=== PATIENT | female | born 1990 | race Two or more races ===

== ENCOUNTER 2018-03-04 09:10 | Emergency (ER) | payer MEDICAID ==
[~2018-03-04] VITALS: Ht 160 cm; Wt 145.1 kg
[2018-03-04 09:40] VITALS: BP 149/89
[2018-03-04] MEDS ORDERED: Ketorolac 30mg Inj IM ONE (10:30)
[2018-03-04] MEDS ORDERED: CYCLOBENZAPRINE10 MG ORAL (10:39)
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
[2018-03-04 10:56] VITALS: BP 149/89
== END 2018-03-04 10:59 | disposition home or self-care (01) ==
LOC: EMR 09:55
DX: M54.2 Cervicalgia (principal); M54.89 Other dorsalgia; Z98.84 Bariatric surgery status
CPT/HCPCS: 96372; 99283; J1885